=== PATIENT | female | born 1990 | race Caucasian/White ===

== ENCOUNTER 2021-03-29 05:50 | Day surgery (SDC) | payer MEDICAID, SELFPAY ==
[~2021-03-29] VITALS: Ht 157.5 cm; Wt 59.0 kg
[2021-03-29 07:18] LABS: HCG,QUAL RESULT NEGATIVE (NEGATIVE)
[2021-03-29] MEDS ORDERED: MEPERIDINE 100 MG INJ. 100 MG/ML VIAL ONE (07:32)
[2021-03-29] MEDS ORDERED: MIDAZOLAM HCL 5 MG/5 ML VIAL ONE (07:32)
[2021-03-29] MEDS ORDERED: SIMETHICONE 40 MG/0.6 ML ML ONE (07:32)
[2021-03-29 11:23] VITALS: BP_SYST 103
== END 2021-03-29 09:50 | disposition home or self-care (01) ==
LOC: SDS 05:50
PROVIDERS: ATTEND Internal Medicine Gastroenterology
DX: K70.31 Alcoholic cirrhosis of liver with ascites (principal); I85.10 Secondary esophageal varices without bleeding; K29.70 Gastritis, unspecified, without bleeding; K44.9 Diaphragmatic hernia without obstruction or gangrene; K20.90 Esophagitis, unspecified without bleeding; Z79.899 Other long term (current) drug therapy
CPT/HCPCS: 36415; 43239; 84703; 87426; 88305; 88312; 99152; G0378; J2175; J2250; 88313